=== PATIENT | male | born 1950 | race Caucasian/White ===

== ENCOUNTER 2017-12-15 05:35 | Inpatient (IN) | payer OTHER ==
[~2017-12-15] VITALS: Ht 172.7 cm; Wt 107.3 kg
[2017-12-15] MEDS ORDERED: THROMBIN 5,000 UNIT VIAL TP ONE (06:03)
[2017-12-15] MEDS ORDERED: BUPIVACAINE/PF 0.5% ONE (06:03)
[2017-12-15] MEDS ORDERED: VANCOMYCIN 1,000 MG ONE (06:03)
[2017-12-15] MEDS ORDERED: BACITRACIN 50,000 UNIT ONE (06:04)
[2017-12-15] MEDS ORDERED: EPINEPHRINE 1 MG/ML, 1ML ONE (06:04)
[2017-12-15 06:16] LABS: MICROSCOPIC NOT IND
[2017-12-15 06:20] LABS: CULTURE INDICATED? NO
[2017-12-15] MEDS ORDERED: LACTATED RINGERS 1,000 ML IV SCH (06:27)
[2017-12-15] MEDS ORDERED: GLIP5TAB10 PO (06:30)
[2017-12-15] MEDS ORDERED: METF500T4 PO (06:30)
[2017-12-15] MEDS ORDERED: SAXA5TAB PO (06:30)
[2017-12-15] MEDS ORDERED: ASPI-691 PO (06:37)
[2017-12-15 06:41] VITALS: BP 143/97
[2017-12-15 06:44] LABS: BASOPHILS # (AUTO) 0.09 x10^3/uL (0-0.1); BASOPHILS % (AUTO) 1 % (0-1); EOSINOPHILS # (AUTO) 0.56 x10^3/uL (0-0.4); EOSINOPHILS % (AUTO) 5 % (1-7); LYMPHOCYTES # (AUTO) 4.47 x10^3/uL (1-3.4); LYMPHOCYTES % (AUTO) 38 % (22-44); MD NO; MEAN CORPUSCULAR HEMOGLOBIN 26.1 pg (27.5-34.5); MEAN CORPUSCULAR HGB CONC 32.3 g/dL (33.2-36.2); MEAN CORPUSCULAR VOLUME 80.7 fL (81-97); MONOCYTES # (AUTO) 0.96 x10^3/uL (0.2-0.8); MONOCYTES % (AUTO) 8 % (2-9); NEUTROPHILS # (AUTO) 5.62 x10^3/uL (1.8-6.8); NEUTROPHILS % (AUTO) 48 % (42-75); PLATELET COUNT 316 x10^3/uL (130-400); RED BLOOD COUNT 5.84 x10^6/uL (4.38-5.82); RED CELL DISTRIBUTION WIDTH 15.2 % (9.4-14.8)
[2017-12-15] MEDS ORDERED: ONDANSETRON ODT 8 MG ONE (06:48)
[2017-12-15] MEDS ORDERED: GABAPENTIN 300 MG CAPSULE ONE (06:48)
[2017-12-15] MEDS ORDERED: FAMOTIDINE 20 MG TABLET ONE (06:48)
[2017-12-15] MEDS ORDERED: DIAZEPAM 5 MG TABLET ONE (06:49)
[2017-12-15] MEDS ORDERED: MIDAZOLAM 1 MG/ML, 2ML ONE (06:50)
[2017-12-15] MEDS ORDERED: OXYcodone IR 5MG TABLET ONE (06:50)
[2017-12-15] MEDS ORDERED: FENTANYL PF 100 MCG/2ML ONE ×2 (06:50→08:09)
[2017-12-15] MEDS ORDERED: ACETAMINOPHEN 500 MG TABLET ONE (06:51)
[2017-12-15] MEDS ORDERED: ROCURONIUM 10 MG/ML,10ML ONE (06:58)
[2017-12-15] MEDS ORDERED: DIAZEPAM 5 MG TABLET PO ONE (07:00)
[2017-12-15] MEDS ORDERED: GABAPENTIN 300 MG CAPSULE PO ONE (07:00)
[2017-12-15] MEDS ORDERED: ACETAMINOPHEN 500 MG TABLET PO ONE (07:00)
[2017-12-15] MEDS ORDERED: FAMOTIDINE 20 MG TABLET PO ONE (07:00)
[2017-12-15] MEDS ORDERED: OXYcodone IR 5MG TABLET PO ONE (07:00)
[2017-12-15] MEDS ORDERED: ONDANSETRON ODT 8 MG PO ONE (07:00)
[2017-12-15] MEDS ORDERED: HYDR-3245 PO (08:27)
[2017-12-15] MEDS ORDERED: CYCL-259 PO (08:27)
[2017-12-15] MEDS ORDERED: TRAM50TA2 PO (08:27)
[2017-12-15] MEDS ORDERED: LISI-167 PO (08:27)
[2017-12-15] MEDS ORDERED: METO25TA35 PO (08:27)
[2017-12-15] MEDS ORDERED: ONDANSETRON 2MG/ML, 2ML IVPush PRN ×2 (08:30→09:00)
[2017-12-15] MEDS ORDERED: METOPROLOL 1 MG/ML, 5ML IV PRN (08:30)
[2017-12-15] MEDS ORDERED: HYDROcodone/APAP 7.5-325MG/15ML UDC PO PRN (08:30)
[2017-12-15] MEDS ORDERED: FENTANYL PF 100 MCG/2ML IV PRN (08:30)
[2017-12-15] MEDS ORDERED: MEPERIDINE/PF 25MG/0.5ML IVPush PRN (08:30)
[2017-12-15] MEDS ORDERED: LABETALOL 5MG/ML, 20ML IV PRN (08:30)
[2017-12-15] MEDS ORDERED: PROMETHAZINE 12.5 MG SUPP PR PRN (08:30)
[2017-12-15] MEDS ORDERED: MIDAZOLAM 1 MG/ML, 2ML IV PRN (08:30)
[2017-12-15] MEDS ORDERED: OXYcodone 5 MG/5 ML ORAL.SOL UDC PO PRN (08:30)
[2017-12-15] MEDS ORDERED: PROMETHAZINE 25 MG/ML, 1ML IV PRN (08:30)
[2017-12-15] MEDS ORDERED: EPHEDRINE 50 MG/ML, 1ML IVPush PRN (08:30)
[2017-12-15] MEDS ORDERED: morphine SULFATE 10 MG/ML, 1ML IV PRN (08:30)
[2017-12-15] MEDS ORDERED: hydrALAzine 20 MG/ML, 1ML IV PRN (08:30)
[2017-12-15] MEDS ORDERED: ALBUTEROL SULFATE 2.5 MG/3 ML NPPB PRN (08:30)
[2017-12-15] MEDS ORDERED: DIAZEPAM 5 MG/ML, 2ML IVPush PRN (08:30)
[2017-12-15] MEDS ORDERED: NEOSTIGMINE 1 MG/ML, 10ML ONE (08:31)
[2017-12-15] MEDS ORDERED: DEXAMETHASONE 4 MG/ML, 1ML ONE (08:31)
[2017-12-15] MEDS ORDERED: PROPOFOL 10 MG/ML, 20ML ONE (08:31)
[2017-12-15] MEDS ORDERED: GLYCOPYRROLATE 0.2MG/1ML, 5ML ONE (08:31)
[2017-12-15] MEDS ORDERED: CEFAZOLIN 1,000 MG ONE (08:31)
[2017-12-15] MEDS ORDERED: SUCCINYLCHOLINE 20 MG/ML, 10ML ONE (08:31)
[2017-12-15] MEDS ORDERED: PHARMACY MAY ADJ FOR RENAL FX MC PRN (09:00)
[2017-12-15] MEDS ORDERED: morphine SULFATE 10 MG/ML, 1ML IVPush PRN (09:00)
[2017-12-15] MEDS ORDERED: BISACODYL 10 MG SUPP PR PRN (09:00)
[2017-12-15] MEDS ORDERED: PROMETHAZINE 25 MG/ML, 1ML IM PRN (09:00)
[2017-12-15] MEDS ORDERED: HYDROcodone/APAP 5/325 TABLET PO PRN (09:00)
[2017-12-15] MEDS ORDERED: SENNA/DOCUSATE TABLET PO PRN (09:00)
[2017-12-15] MEDS: LABETALOL 5MG/ML 40ML VIAL IVPush SCH ×2 (09:00→15:24)
[2017-12-15] MEDS ORDERED: OXYcodone/APAP 5/325MG TABLET PO PRN (09:00)
[2017-12-15] MEDS ORDERED: MAGNESIUM HYDROXIDE 8%, 30ML UDC PO PRN (09:00)
[2017-12-15] MEDS ORDERED: DIPHENHYDRAMINE 50 MG/ML, 1ML IVPush PRN (12:00)
[2017-12-15] MEDS ORDERED: DIPHENHYDRAMINE 50 MG CAPSULE PO PRN (12:00)
[2017-12-15] MEDS: metFORMIN 500 MG TABLET PO SCH (12:51)
[2017-12-15] MEDS: LISINOPRIL 10 MG TABLET PO SCH (12:51)
[2017-12-15] MEDS: METOPROLOL TARTRATE 25 MG TABLET PO SCH ×2 (12:52→21:14)
[2017-12-15 12:58] VITALS: BP 135/94
[2017-12-15] MEDS: CEFAZOLIN PMX 1GM/50ML 50 ML IVPB SCH ×2 (15:41→22:51)
[2017-12-15] MEDS: METHOCARBAMOL 750 MG TABLET PO PRN (15:59)
[2017-12-15 19:42] VITALS: BP 111/71
[2017-12-16 00:01] VITALS: BP 106/68
[2017-12-16] MEDS: LABETALOL 5MG/ML 40ML VIAL IVPush SCH ×2 (00:17→07:23)
[2017-12-16] MEDS ORDERED: OXYC-307 PO (01:49)
[2017-12-16 04:04] VITALS: BP 115/76
[2017-12-16 04:54] LABS: MEAN CORPUSCULAR HEMOGLOBIN 25.9 pg (27.5-34.5); MEAN CORPUSCULAR HGB CONC 31.6 g/dL (33.2-36.2); MEAN CORPUSCULAR VOLUME 81.9 fL (81-97); PLATELET COUNT 309 x10^3/uL (130-400); RED BLOOD COUNT 5.03 x10^6/uL (4.38-5.82); RED CELL DISTRIBUTION WIDTH 15.3 % (9.4-14.8)
[2017-12-16 04:59] LABS: ANION GAP 9 mmol/L (5-15); CALCIUM 8.2 mg/dL (8.5-10.1); CHLORIDE 104 mmol/L (98-107)
[2017-12-16 05:01] LABS: CREATININE 1.58 mg/dL (0.7-1.3)
[2017-12-16 05:21] LABS: BASOPHILS # (AUTO) 0.03 x10^3/uL (0-0.1); BASOPHILS % (AUTO) 0 % (0-1); EOSINOPHILS # (AUTO) 0.01 x10^3/uL (0-0.4); EOSINOPHILS % (AUTO) 0 % (1-7); LYMPHOCYTES # (AUTO) 4.68 x10^3/uL (1-3.4); LYMPHOCYTES % (AUTO) 26 % (22-44); MD SCAN; MONOCYTES # (AUTO) 2.11 x10^3/uL (0.2-0.8); MONOCYTES % (AUTO) 12 % (2-9); NEUTROPHILS # (AUTO) 11.32 x10^3/uL (1.8-6.8); NEUTROPHILS % (AUTO) 62 % (42-75)
[2017-12-16 07:30] VITALS: BP 119/70
[2017-12-16] MEDS: METHOCARBAMOL 750 MG TABLET PO PRN (08:33)
[2017-12-16] MEDS: LISINOPRIL 10 MG TABLET PO SCH (08:33)
[2017-12-16] MEDS: METOPROLOL TARTRATE 25 MG TABLET PO SCH (08:34)
[2017-12-16] MEDS: metFORMIN 500 MG TABLET PO SCH (08:34)
[2017-12-16] MEDS ORDERED: ENOXAPARIN 40 MG/0.4 ML SQ SCH (11:00)
[2017-12-16 11:28] VITALS: BP 109/80
== END 2017-12-16 12:15 | disposition home or self-care (01) | DRG 515 ==
LOC: ORIP 05:35 → 4NOR 10:18 → DCLOUNGE 12-16 12:05
PROVIDERS: ADMIT Neurological Surgery; ATTEND Neurological Surgery
PROC: 01NR0ZZ Release Sacral Nerve, Open Approach (ICD-10-PCS; 2017-12-15)
PROC: 01NB0ZZ Release Lumbar Nerve, Open Approach (ICD-10-PCS; principal; 2017-12-15 07:00)
DX: M48.061 Spinal stenosis, lumbar region without neurogenic claudication (principal); N17.0 Acute kidney failure with tubular necrosis; E66.01 Morbid (severe) obesity due to excess calories; R71.0 Precipitous drop in hematocrit; D72.829 Elevated white blood cell count, unspecified; E11.9 Type 2 diabetes mellitus without complications; G89.29 Other chronic pain; I10 Essential (primary) hypertension; M51.36 Other intervertebral disc degeneration, lumbar region; N28.9 Disorder of kidney and ureter, unspecified; Z68.37 Body mass index [BMI] 37.0-37.9, adult; M54.16 Radiculopathy, lumbar region
CPT/HCPCS: 36415; 72100; 80048; 81003; 82962; 85025; C1729; J0171; J0690; J1100; J1650; J2250; J2704; J2710; J3010; J3370; J3490; Q0162; J0330; J2270; J7120